=== PATIENT | female | born 1975 | race Caucasian/White ===

== ENCOUNTER 2022-03-19 13:11 | Emergency (ER) | payer BC ==
[2022-03-19] MEDS ORDERED: LORazepam 2 MG/ML SDV IVPUSH ONE (13:15)
[2022-03-19] MEDS ORDERED: Sodium Chloride 0.9% 2.5 ML Syringe FLUSH PRN (13:15)
[2022-03-19] MEDS ORDERED: Sodium Chloride 0.9% 10 ML Syringe FLUSH PRN (13:15)
[2022-03-19 13:53] LABS: CARBON DIOXIDE,CO2 22.5 mmol/L (21.0-32.0)
== END 2022-03-19 15:20 | disposition home or self-care (01) ==
LOC: MW.ED 13:11
DX: R56.9 Unspecified convulsions (principal); Z79.899 Other long term (current) drug therapy; Z79.01 Long term (current) use of anticoagulants
CPT/HCPCS: 36415; 70450; 80053; 83735; 84703; 85025; 93005; 96365; 96375; 99285; J1953; J2060; J3490; 93010; 99284